=== PATIENT | female | born 1970 | race Caucasian/White ===

== ENCOUNTER 2024-01-01 18:43 | Emergency (ER) | payer OTHER, SELFPAY ==
--- OUTSIDE RECORDS SUMMARY | 2024-01-01 18:46 | XMS REPORT | Clinical Summary ---
Author Name Unknown Organization [facility] Address [address] [place] [address] Care Team Providers Care Performance Improvement Manager Name Role Phone Unavailable Primary Care Provider Unavailabl e Encounters Date Type Department Care Team Description 12/22/2023 Documentation Breast Imaging [address] [facility], 5th Floor [address] [place], [place] [id number] Shelbi Chapman, RT after 01/01/2023 Social History Tobacco Use Types Packs/Day Years Used Date Smoking Tobacco: Never Assessed Sex and Gender Information Value Date Recorded Sex Assigned at Not on file Gender Identity Not on file Sexual Orientation Not on file Plan of Treatment Health Maintenance Due Date Last Done Comments COVID-19 Vaccine (2022-2 4 season) 2023 Influenza Vaccine 01/03/2024 Pneumococcal Vaccine: Pediat rics (0 to 5 Years) and At-Risk Patients (6 to 64 Years) Aged Out No longer eligi ble based on patient's age to complete this topic
[2024-01-01] MEDS ORDERED: METHYLPREDNISOLONE 125 MG INJ ONE (19:47)
--- NOTE | 2024-01-01 19:48 | ER ---
Nurse's Notes [facility] Name: Sierra Hernandez Age: 53 yrs Sex: Female : 1970 Arrival Date: 01/01/2024 Time: 18:43 Bed IW2 Private MD: Diagnosis: Allergic urticaria;Allergy status to unspecified drugs, medicaments and biological substances status Presentation: 12/31 19:01 Chief complaint: Patient states: RASH STARTED YESTERDAY TOOK BENADRYL. RAISED RED ITCHY db RASH ALL OVER BODY. Coronavirus screen: Client denies travel out of the [place] in the last 14 days. At this time, the client does not indicate any symptoms associated with coronavirus-19. Ebola Screen: Patient negative for fever greater than or equal to 101.5 degrees Fahrenheit, and additional compatible Ebola Virus Disease symptoms Patient denies exposure to infectious person. Patient denies travel to an Ebola-affected area in the 21 days before illness onset. No symptoms or risks identified at this time. Initial Sepsis Screen: Does the patient meet any 2 criteria? No. Patient's initial sepsis screen is negative. Does the patient have a suspected source of infection? No. Patient's initial sepsis screen is negative. Risk Assessment: Do you want to hurt yourself or someone else? Patient reports no desire to harm self or others. Onset of symptoms was December 31, 2023. 19:01 Method Of Arrival: Ambulatory db 19:01 Acuity: AVA 3 db Triage Assessment: 19:02 General: Appears in no apparent distress. comfortable, Behavior is calm, cooperative. db Pain: Complains of pain in head. Neuro: Level of Consciousness is awake, alert, obeys commands, Oriented to person, place, time, situation. Respiratory: Airway is patent Respiratory effort is even, unlabored. Derm: Rash noted that is macular. 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 - Infectious Disease History:: Denies. - Social history:: Smoking status: Patient reports the use of cigarette tobacco products, smokes one pack cigarettes per day. Screenin:59 [facility] ED Fall Risk Assessment (Adult) History of falling in the last 3 months, tm6 including since admission No falls in past 3 months (0 pts) Confusion or Disorientation No (0 pts) Intoxicated or Sedated No (0 pts) Impaired Gait No (0 pts) Mobility Assist Device Used No (0 pt) Altered Elimination No (0 pt) Score/Fall Risk Level 0 - 2 = Low Risk Oriented to surroundings, Maintained a safe environment, Educated pt \T\ family on fall prevention, incl call for assistance when getting out of bed. Abuse screen: Denies threats or abuse. Denies injuries from another. Nutritional screening: No deficits noted. Tuberculosis screening: No symptoms or risk factors identified. Vital Signs: 19:01 BP 120 / 83; Pulse 64; Resp 18; Temp 98; Pulse Ox 100% ; Weight 77.11 kg; Height 5 ft. db 2 in. ; 19:01 Body Mass Index 31.09 (77.11 kg, 157.48 cm) db ED Course: 18:48 Patient arrived in ED. ra3 18:49 Yohan Hyde PA is PHCP. cp 18:49 Mike Emanuel DO is Attending Physician. cp 19:02 Triage completed. db 19:02 Arm band placed on right wrist. Patient placed in waiting room. db 19:59 Patient has correct armband on for positive identification. Provided Education on: use tm6 of medications. 19:59 No provider procedures requiring assistance completed. Patient did not have IV access tm6 during this emergency room visit. Administered Medications: 19:59 Drug: MethylPREDNISolone Sodium Succinate IM 125 mg IM once Route: IM; Site: right tm6 gluteus; 19:59 Follow up: Response: Medication administered at discharge. tm6 Medication: 19:59 VIS not applicable for this client. tm6 Outcome: 19:48 Discharge ordered by . cp 19:59 Discharged to home ambulatory, tm6 19:59 Condition: stable 19:59 Discharge instructions given to patient, Instructed on discharge instructions, follow up and referral plans. medication usage, Demonstrated understanding of instructions, follow-up care, medications, Prescriptions given X 2, 20:00 Patient left the ED. tm6 Signatures: Yohan Hyde PA PA cp Benton, Danielle, RN RN Joe Chawla RN RN tm6 Gloria Land ra3
--- NOTE | 2024-01-01 19:48 | EDPHYS ---
Physician Documentation [facility] Name: Sierra Hernandez Age: 53 yrs Sex: Female : 1970 Arrival Date: 01/01/2024 Time: 18:43 Bed IW2 Private MD: ED Physician Mike Emanuel HPI: 12/31 19:15 This 53 yrs old Female presents to ER via Ambulatory with complaints of Rash. cp 19:15 The patient's rash thought to be caused by medication. The rash is located on the body cp diffusely. The rash can be described as hives, itchy. 19:15 Onset: The symptoms/episode began/occurred yesterday, after taking prescribed Naproxen cp for headaches. 19:15 Associated signs and symptoms: Pertinent positives: itching, Pertinent negatives: cp burning sensation, difficulty breathing, fever, nausea, Pain swelling of lips, swelling of throat, swelling of tongue, wheezing. Severity of symptoms: in the emergency department the symptoms are worse moderately. Treatment given at home: Benadryl. 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 - Infectious Disease History:: Denies. - Social history:: Smoking status: Patient reports the use of cigarette tobacco products, smokes one pack cigarettes per day. ROS: 19:20 Constitutional: Negative for body aches, chills, fever, poor PO intake, cp 19:20 Eyes: Negative for injury, pain, redness, and discharge, cp 19:20 ENT: Negative for drainage from ear(s), ear pain, rhinorrhea, sore throat, difficulty swallowing, difficulty handling secretions, 19:20 Cardiovascular: Negative for chest pain, 19:20 Respiratory: Negative for cough, shortness of breath, wheezing, 19:20 Abdomen/GI: Negative for abdominal pain, vomiting, diarrhea, constipation, 19:20 Skin: Positive for rash, diffusely, 19:20 Neuro: Negative for altered mental status, dizziness, headache, weakness, 19:20 All other systems are negative, Exam: 19:25 Constitutional: The patient appears in no acute distress, alert, awake, cp non-diaphoretic, non-toxic, well developed, well nourished, 19:25 Head/Face: Normocephalic, atraumatic. cp 19:25 Eyes: Periorbital structures: appear normal, Conjunctiva: normal, no exudate, no injection, Sclera: no appreciated abnormality, Lids and lashes: appear normal, bilaterally, 19:25 ENT: External ear(s): are unremarkable, Nose: is normal, Mouth: Lips: moist, Oral mucosa: pink and intact, moist, Posterior pharynx: Airway: no evidence of obstruction, patent, 19:25 Neck: ROM/movement: is normal, is supple, without pain, no range of motions limitations, 19:25 Cardiovascular: Rate: normal, Rhythm: regular, 19:25 Respiratory: the patient does not display signs of respiratory distress, Respirations: normal, no use of accessory muscles, no retractions, labored breathing, is not present, Breath sounds: are clear throughout, no decreased breath sounds, no stridor, no wheezing, 19:25 Abdomen/GI: Exam negative for discomfort, distension, guarding, 19:25 Skin: rash can be described as hives, and is diffusely located, 19:25 Neuro: Orientation: to person, place \T\ time. Mentation: is normal, Vital Signs: 19:01 BP 120 / 83; Pulse 64; Resp 18; Temp 98; Pulse Ox 100% ; Weight 77.11 kg; Height 5 ft. db 2 in. ; 19:01 Body Mass Index 31.09 (77.11 kg, 157.48 cm) db MDM: 19:09 Patient medically screened. cp 19:15 Differential diagnosis: cellulitis, allergic hives, urticaria, anaphylaxis. cp 19:47 Data reviewed: vital signs, nurses notes, and as a result, I will discharge patient. cp 19:48 Counseling: I had a detailed discussion with the patient and/or guardian regarding the historical points, exam findings, and any diagnostic results supporting the discharge/admit diagnosis, to return to the emergency department if symptoms worsen or persist or if there are any questions or concerns that arise at home. 19:48 I considered the following discharge prescriptions or medication management in the emergency department Medications were administered in the Emergency Department. See MAR. Care significantly affected by the following chronic conditions: Hypertension. Response to treatment: the patient's symptoms have mildly improved after treatment, and as a result, I will discharge patient. Administered Medications: 19:59 Drug: MethylPREDNISolone Sodium Succinate IM 125 mg IM once Route: IM; Site: right tm6 gluteus; 19:59 Follow up: Response: Medication administered at discharge. tm6 Disposition: 21:34 I was immediately available on-site in the Emergency Department for consultation in the ms3 care of the patient. Disposition Summary: 01/01/24 19:48 Discharge Ordered Notes: Location: Home cp Problem: new cp Symptoms: are unchanged cp Condition: Stable cp Diagnosis - Allergic urticaria cp - Allergy status to unspecified drugs, medicaments and biological substances status cp Followup: cp - With: Private Physician - When: 2 - 3 days - Reason: Worsening of condition Discharge Instructions: - Discharge Summary Sheet cp - Drug Allergy cp - Hives cp Forms: - Medication Reconciliation Form cp - Antibiotic Education cp - Prescription Opioid Use cp - Patient Portal Instructions cp - Leadership Thank You Letter cp Prescriptions: - Pepcid 20 mg Oral Tablet - take 1 tablet ORAL route every 12 hours for 10 days; 20 tablet; Refills: 0, cp Product Selection Permitted - Prednisone 20 mg Oral tablet - take 3 tablet ORAL route once daily for 3 days then take 2 tablets daily for 2 cp days and then 1 tablet daily for 2 days; 16 tablet; Refills: 0, Product Selection Permitted Addendum: 01/06/2024 10:39 I was immediately available on-site in the Emergency Department for consultation in the m s3 care of the patient. Signatures: Yohan Hyde PA PA cp Sims, Marcus, DO DO ms3 Jen Rubin RN RN Joe Metzger RN RN tm6
[2024-01-01 20:09] VITALS: BP 120/83; TEMP 98; O2SAT 100
== END 2024-01-01 20:00 | disposition home or self-care (01) ==
LOC: ER 18:43
DX: L50.0 Allergic urticaria (principal); Z88.8 Allergy status to other drugs, medicaments and biological substances
CPT/HCPCS: 96372; 99284; J2919